=== PATIENT | female | born 1980 ===

== ENCOUNTER → 2023-08-19 | Outpatient (REF) | LOC: M LAB 09:33 | PROVIDERS: ATTEND Nurse Practitioner Adult Health | DX: Z00.00 Encounter for general adult medical examination without abnormal findings (principal) ==

== ENCOUNTER → 2023-10-18 | Outpatient (REF) | LOC: M EMP 07:48 | PROVIDERS: ATTEND Family Medicine | DX: Z20.822 Contact with and (suspected) exposure to COVID-19 (principal) ==

== ENCOUNTER → 2024-05-30 | Outpatient (REF) | LOC: M EMP 14:26 | PROVIDERS: ATTEND Family Medicine | DX: Z11.52 Encounter for screening for COVID-19 (principal) ==